=== PATIENT | female | born 1985 | race Caucasian/White ===

== ENCOUNTER 2022-01-23 15:32 | Outpatient (CLI) | payer OTHER, SELFPAY ==
--- NOTE | 2022-01-23 15:45 | MR_ITS ---
WS: [id number] MRI BRAIN WITHOUT CONTRAST HISTORY: SEVERE FRONTAL HEADACHES COMPARISON: None available. TECHNIQUE: Diffusion imaging, multiplanar T1, T2 and FLAIR imaging obtained. No evidence for acute infarct or hemorrhage. Jackman-white matter differentiation is normal. No remote or acute infarcts are volume loss. Ventricles and extra-axial spaces are normal. No inferior displacement of cerebellar tonsils. The sella turcica and pituitary gland are unremarkabl e. Dural venous sinuses and lower elwha of [place] demonstrate no abnormality on this unenhanced studies. Paranasal sinuses: Clear. Mastoid air cells: Normal. Calvarium and scalp: Intact. MR/MR head wo con* [id number] IMPRESSION: 1. Unremarkable noncontrast MRI brain. 2. No white matter lesions in the frontal lobes that may be seen with migraine headaches.
== END 2022-01-23 15:33 | disposition home or self-care (01) ==
PROVIDERS: PCP Family Medicine; Visit Provider Family Medicine
DX: R51.9 Headache, unspecified (principal)
CPT/HCPCS: 70551

== ENCOUNTER 2024-07-14 10:20 | Day surgery (SDC) | payer OTHER, SELFPAY ==
[2024-07-14] VITALS (8 sets, daily range): BP systolic 126–138; BP diastolic 76–97; PULSE 101–128; RESP 16–18; TEMP 36.3–37.1; O2SAT 94–100; BMI 25.8
--- NOTE | 2024-07-14 11:00 | P.ANESASSM_ITS ---
Pre-Anesthetic Assessment Height/Weight: Height 5 ft 6 in Weight 160 lb O2 Del Method Room Air 07/14/24 10:48 Preop Diagnosis: Miscarriage with retained products of conception Operation Date: 07/14/24 12:10 Proposed Procedures p Dilation And Curettage (D&C) 90639,O02.1(Not Applicable) - Elder Valerio MD Was Beta Destinee taken within 24 hours: N/A Was Clonidine taken within 24 hours: N/A Last intake: Intake Last Liquid Date 07/13/24 Last Liquid Time 18:00 Last Solid Date 07/13/24 Last Solid Time 18:00 Social No alcohol and No tobacco Exam alert, oriented x 3, clear to auscultation bilaterally and regular rate & rhythm Airway Submandibular: within normal limits Cervical ROM: within normal limits Mallampati: Class II Dentition: full Anesthetic Plan ASA status: 2 Anesthesia: General Other: No prior issues with anesthesia NPO since yesterday evening Patient had a miscarriage approximately 6 weeks ago. Since that time she has had prolonged vaginal bleeding. Transvaginal ultrasound showing retained products of conception Labs from outside facility reviewed, hemoglobin 10.4 on July 08 METs greater than 4 We are foregoing urine test at this time as it will most likely still be positive due to products of conception on imaging Plan for general anesthesia Medications/Allergies Home Medications ?Medication ?Instructions ?Recorded ?Confirmed ?Last Taken ?Type fluoxetine 20 mg tablet 20 mg PO DAILY 07/13/24 04/0 11/2907/13/24 History norgestimate 0.25 mg-ethinyl 1 tab PO DAILY 07/13/24 0 07/13/24 07/13/24 History estradiol 35 mcg tablet (Estarylla) Allergies Allergy/AdvReac Type Severity Reaction Status Date / Time No Known Allergies Allergy Verified 07/13/24 14:48 Data Anesthesia Cardiac Studies: No Data to Display
[2024-07-14] MEDS: sodium chloride 0.9% 1,000 ML 30 ML IV (11:42)
--- NOTE | 2024-07-14 12:52 | W.PM.OPSUD ---
Surgery/Procedure H&P Update DATE OF PROCEDURE: July 14, 2024 DATE H&P PERFORMED: 07/14/24 H&P UPDATE INFORMATION: I have reviewed H&P completed within last 30 days, I have examined patient prior to procedure, No changes to prior documentation, H&P to be scanned into chart and Risks and benefits of the procedure reviewed PREOP DIAGNOSIS: Miscarriage with retained products of conception PLANNED PROCEDURE: Operation Date: 07/14/24 12:10 Proposed Procedures p Dilation And Curettage (D&C) 36125,O02.1(Not Applicable) - Elder Valerio MD
--- NOTE | 2024-07-14 12:54 | PM.OP ---
Operative Report Date of procedure: July 14, 2024 Pre-op diagnosis: 39-year-old female with a first trimester missed with retained products of conception Post-op diagnosis: Status post a D&C and removal of retained products of conception Procedure done: D&C Specimens removed/disposition: Retained products of conception Pathology: Routine prior to conception Surgeon: Elder Valerio MD Anesthesia: General Estimated blood loss (mL): 30 Estimated blood loss: 30 Brief History: The patient had persistent bleeding status post spontaneous . An ultrasound demonstrated retained products of conception. Discussion was had with the patient and her mother regarding risks and alternatives and they elected to proceed with a D&C. Procedure: The patient was brought back to the operating room where she was placed under general anesthesia and prepped and draped in a dorsolithotomy position in the usual fashion. A weighted speculum was placed. A single-tooth tenaculum was used to grasp the anterior lip of the cervix. The os was then dilated. The intrauterine cavity was then curettage in all 4 quadrants until the uterine cry was noted. Tissue removed from the uterus was then sent to pathology. The tenaculum was removed from the anterior lip of the cervix and pressure was placed until the bleeding was minimal. There were no complications.
--- NOTE | 2024-07-14 14:50 | ANE.PACU2 ---
Inpatient post-anesthesia follow up: Airway intact: Yes Vital signs: Temperature 98.7 F Pulse Rate 102 Respiratory Rate 18 Blood Pressure 137/76 Pulse Oximetry 99 Oxygen Delivery Me thod Room Air Oxygen Flow Rate Fraction of Inspir ed Oxygen Hydration adequate: Yes Nausea and vomiting: No Pain level: 1 Mental status: Baseline
== END 2024-07-14 14:07 | disposition home or self-care (01) ==
PROVIDERS: PCP Family Medicine; Visit Provider Family Medicine
PROC: (CPT 58120; principal; 2024-07-14 12:00)
DX: O02.1 Missed abortion (principal)
CPT/HCPCS: 59820; 88305; A4216; J0330; J1100; J1885; J2250; J2405; J3010; J3490; J7030; J9999

== ENCOUNTER 2024-12-08 10:13 | Outpatient (CLI) | payer OTHER, SELFPAY ==
--- NOTE | 2024-12-08 10:19 | MM_ITS ---
WS: [id number] BILATERAL SCREENING DIGITAL TOMOSYNTHESIS MAMMOGRAM WITH CAD HISTORY: ANNUAL SCREEN COMPARISON: 06/16/2018 Bilateral CC and MLO views with tomosynthesis and synthetic mammography submitted. Computer aided detection analyzed. Breast composition: The breasts are heterogeneously dense, which may obscure small masses. No suspicious masses, microcalcifications or architectural distortion. MM/MM scr BI tomosynthesis [id number] IMPRESSION: BI-RADS: 1 - Negative FOLLOW UP: 1 Year Follow-up
== END 2024-12-08 10:14 | disposition home or self-care (01) ==
LOC: RAD 10:15
PROVIDERS: PCP Physician Assistant; Visit Provider Physician Assistant
DX: Z12.31 Encounter for screening mammogram for malignant neoplasm of breast (principal); R92.333 Mammographic heterogeneous density, bilateral breasts
CPT/HCPCS: 77063; 77067

== ENCOUNTER 2024-12-14 12:30 | Oncology outpatient (recurring) (ONCR) | payer OTHER, SELFPAY ==
[2024-12-07 14:23] VITALS: BP 128/85; PULSE 66; RESP 17; TEMP 36.7; O2SAT 97
[2024-12-07] MEDS: ferric carboxy (PYXIS) 750 MG in sodium chloride 0.9% (100 ml) 100 ML 345 MG IV (14:50)
[2024-12-07 15:38] VITALS: BP 125/85; PULSE 69; RESP 17; TEMP 36.7; O2SAT 99
[2024-12-14] MEDS: ferric carboxy (PYXIS) 750 MG in sodium chloride 0.9% (100 ml) 100 ML 345 MG IV (13:05)
[2024-12-14 14:06] VITALS: BP 121/64; PULSE 80; RESP 16; O2SAT 99
== END 2025-01-04 23:59 | disposition home or self-care (01) ==
PROVIDERS: Visit Provider Physician Assistant
DX: D50.0 Iron deficiency anemia secondary to blood loss (chronic); Z79.899 Other long term (current) drug therapy; Z53.9 Procedure and treatment not carried out, unspecified reason
CPT/HCPCS: 96365; J1439; J7050

== ENCOUNTER 2025-03-28 07:06 | Outpatient (CLI) | payer OTHER, SELFPAY | END 2025-03-28 07:07 | disposition home or self-care (01) | LOC: RT 07:12 | PROVIDERS: PCP Physician Assistant; Visit Provider Physician Assistant | DX: R06.02 Shortness of breath (principal) | CPT/HCPCS: 94010; 94726; 94729 ==